=== PATIENT | male | born 1965 | race Caucasian/White ===

== ENCOUNTER 2019-09-26 13:30 | Emergency (ER) | payer BC ==
[2019-09-26] MEDS ORDERED: Ketorolac 60 MG/2 ML SDV IM ONE (14:07)
[2019-09-26] MEDS ORDERED: predniSONE 10 MG Tab ONE (15:30)
--- NOTE | 2019-09-26 16:35 | CR ---
Date of Service: 09/26/19 Clinical Data: pain PA AND LATERAL CHEST: No priors. The heart size is normal. The lungs are clear. No pneumothorax. No pleural effusion. There is degenerative disk disease at multiple levels in the thoracic spine. No evidence of acute intrathoracic disease. 160265 MTDD
--- NOTE | 2019-09-26 16:39 | CR ---
Date of Service: 09/26/19 Clinical Data pain RIGHT SHOULDER: Comparison is made to a prior exam dated 08/21/11. Mild osteoarthritic changes of the AC joint. There is a small osseous density adjacent to the inferior margin of the glenoid consistent with small bony avulsion or loose body. No acute abnormalities. 590251 MTDD
--- NOTE | 2019-09-26 19:14 | ER ---
REASON FOR EMERGENCY ROOM VISIT: Right shoulder pain. HISTORY: This 54-year-old man from [place] was out camping with his family this weekend. This morning around 9 a.m., he was stung in the right foot by a bee and did not think anything of it. There was some pain and burning and itching initially, but that seemed to wane. He had been stung several times by various insects. Later on in the morning toward noon, he and his family were out picking blueberries when he began to experience some discomfort in his right shoulder and right upper outer chest wall that was increased with movement and the pain intensified. It was a severe pain and it was tender to the touch over the deltoid and pectoral muscle areas. He also noted some radiation down the back of his right arm toward the elbow, but his elbow itself was not tender to touch. He did not have any pain or lymph node swelling in his groin, and the actual bee sting itself was relatively quiet at this time. He denies any vigorous physical activity other than walking and picking blueberries throughout the morning, and over a course of about 2 hours, the pain increased and became very troubling to him to the extent that he could no longer use his right arm without extreme discomfort. He denies any other arthralgias or fever or chills or rashes. He denies any throat tightness or pruritus. PAST MEDICAL HISTORY: 1. Right rotator cuff injury 8 years ago. 2. Hypertension. 3. Hypercholesterolemia. MEDICATIONS: Include: 1. Lisinopril. 2. Simvastatin. PHYSICAL EXAMINATION: GENERAL: Reveals a pleasant man who is in no acute distress. He is holding his right arm close to his body in a somewhat protected posture. HEENT: Head is normocephalic. No conjunctivitis. No facial rash is noted. NECK: Supple. No tenderness. Normal passive range of motion. No adenopathy. CHEST: Clear to auscultation with no wheezes, rhonchi, or rales. CARDIAC: Regular rate without murmur. ABDOMEN: Soft and nontender. EXTREMITIES: The bee sting site was noted in his right dorsum of his right forefoot. There is minimal redness and no swelling. I looked with a magnifying glass and could not identify a stinger. Examination of his extremities reveals that he has a considerable amount of tenderness on palpation of the lateral aspect of his pectoralis muscles and is over his deltoid area. Passive range of motion reveals no bony crepitus. I cannot palpate any adenopathy in either axillary area. He is tender to a lesser extent over the glenohumeral joint area, but the maximum tenderness is on actual palpation of the muscle near the deltopectoral groove area. His tenderness is quite reproducible and moderately severe. FURTHER EMERGENCY ROOM COURSE: We went ahead and obtained x-rays of his chest and his right shoulder. Since I was at a loss to explain his symptoms satisfactorily and I see no acute changes on his chest x-ray nor do I see anything remarkable on the shoulder films, we did go ahead and draw a CBC and a sedimentation rate, and the results of that are pending. I. IMPRESSION: Right shoulder pain with arthralgia and myalgia. This could represent a serum- sickness type of reaction, although I would expect this to not occur this close temporally to the bee sting, it is conceivable. PLAN: He did receive a Toradol 30 mg IM, and I gave him a prescription for prednisone 10 mg, dispensed 15 tablets, 4 tablets a day x3 days plus 3 tablets on day #4. I explained to him that this is a sensible thing to do under the circumstances. I ensured we will await the results of his sedimentation rate. If his sedimentation rate is markedly elevated, we may have to go ahead and give him some IV Solu-Medrol, but I doubt this will be the case. He understands this. All questions were answered and he agrees with this plan. SENG/MILDRED /[id number]
== END 2019-09-26 16:00 | disposition home or self-care (01) ==
LOC: LB.ED 13:30
DX: T63.441A Toxic effect of venom of bees, accidental (unintentional), initial encounter (principal); M25.511 Pain in right shoulder; M79.10 Myalgia, unspecified site; I10 Essential (primary) hypertension; E78.00 Pure hypercholesterolemia, unspecified; Z79.899 Other long term (current) drug therapy
CPT/HCPCS: 36415; 71046; 73030-RT; 85025; 85651; 96372; 99283; 99284-25; J1885; J7512

== ENCOUNTER 2024-11-06 16:05 | Emergency (ER) | payer BC, OTHER ==
[2024-11-06] MEDS: Acetaminophen/HYDROcodone 325-5 MG Tab PO ONE (17:00)
[2024-11-06] MEDS: Diphtheria,Pertussis(Acell),Tetanus Vaccine 0.5 ML Syringe IM ONE (17:02)
[2024-11-06] MEDS ORDERED: Sodium Chloride 0.9% 10 ML Syringe FLUSH PRN (17:26)
[2024-11-06] MEDS: Bacitracin Oint 1 GM U/D Packet TOP ONE (18:57)
[2024-11-06] MEDS ORDERED: Acetaminophen/HYDROcodone 325-5 MG Tab ONE (19:00)
[2024-11-06 19:05] VITALS: BP 164/105; PULSE 76
[2024-11-09] MEDS: Bacitracin Oint 1 GM U/D Packet TOP ONE (10:32)
== END 2024-11-06 19:17 | disposition home or self-care (01) ==
LOC: LB.ED 16:05
DX: S62.623B Displaced fracture of middle phalanx of left middle finger, initial encounter for open fracture (principal); I10 Essential (primary) hypertension; Z23 Encounter for immunization; Z79.899 Other long term (current) drug therapy; W23.0XXA Caught, crushed, jammed, or pinched between moving objects, initial encounter
CPT/HCPCS: 12001; 73140-F2; 90471; 90715; 96365; 99283-25; A9270-GY; J0696; J2003